=== PATIENT | female | born 1995 | race Hispanic/Latino ===

== ENCOUNTER 2024-11-17 14:35 | Emergency (ER) | payer BC, OTHER ==
[2024-11-17 16:22] LABS: Specific Gravity 1.009 (1.005-1.030)
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
[2024-11-17 19:09] VITALS: BP 109/83; TEMP 98.2; O2SAT 100
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
== END 2024-11-17 18:29 | disposition home or self-care (01) ==
LOC: ER 14:35
DX: R51.9 Headache, unspecified (principal); M54.2 Cervicalgia; M54.50 Low back pain, unspecified; R11.2 Nausea with vomiting, unspecified; V49.50XA Passenger injured in collision with unspecified motor vehicles in traffic accident, initial encounter
CPT/HCPCS: 70450; 70486; 71250; 72125; 72131; 76377; 81025; 99283